=== PATIENT | female | born 1965 | race Caucasian/White ===

== ENCOUNTER 2016-12-19 15:06 | Emergency (ER) | payer OTHER ==
[2016-12-19 15:23] VITALS: TEMP 98.5
--- NOTE | 2016-12-19 15:43 | ED PDOC ---
Arrival/HPI - General Historian: Patient - History of Present Illness Time/Duration: Other (since yesterday morning) Context: Home - General Chief Complaint: High Blood Pressure Time Seen by Provider: 12/19/16 15:38 - History of Present Illness Narrative History of Present Illness (Text): 12/19/16 15:39 This 51 yo female with pmh htn, presents to this ED c/o feeling fatigue, mild MOON , and decreased appetite since yesterday morning. Patient stated she went to a local Urgent care center yesterday for evaluation. She was concerned her BP might have been elevated. However, she stated her blodd pressure was in 150's/ 70s. Patient stated symptoms perist today, so she came here to have BP recheck. Denies diplopia, dysarthria, dysphagia, syncope, n/v, rash, sick contact, recent travel, cp, sob, abdominal pain, urinary track symptoms, dizziness, or abnormal gait. (Seymour Beard) Past Medical History - Provider Review Nursing Documentation Reviewed: Yes - Cardiac Hx Hypertension: Yes - Pulmonary Hx Respiratory Disorders: No - Neurological Hx Neurological Disorder: No - HEENT Hx HEENT Disorder: No - Renal Hx Renal Disorder: No - Endocrine/Metabolic Hx Endocrine Disorders: No - Hematological/Oncological Hx Blood Disorders: No - Integumentary Hx Dermatological Disorder: No - Musculoskeletal/Rheumatological Hx Musculoskeletal Disorders: No - Gastrointestinal Hx Gastrointestinal Disorders: No - Genitourinary/Gynecological Hx Genitourinary Disorders: No - Psychiatric Hx Psychophysiologic Disorder: No Hx Substance Use: No - Surgical History Hx Hysterectomy: Yes Family/Social History - Physician Review Nursing Documentation Reviewed: Yes Family/Social History: No Known Family HX Smoking Status: Never Smoked Hx Alcohol Use: Yes Frequency of alcohol use: Socially Hx Substance Use: No Allergies/Home Meds Allergies/Adverse Reactions: Allergies No Known Allergies Allergy (Verified 12/19/16 15:18) Home Medications: Home Meds Medication Instructions Recorded Confirmed Losartan Potassium [Losartan 50 mg PO DAILY 12/19/16 12/19/16 Potassium] Review of Systems - Review of Systems Constitutional: Fatigue. absent: Weight Change, Fevers, Night Sweats Eyes: Normal ENT: Normal Respiratory: Normal Cardiovascular: Normal Gastrointestinal: Normal Genitourinary Female: Frequency. absent: Dysuria, Hematuria, Vaginal Bleeding, Vaginal Discharge Musculoskeletal: Normal Skin: Normal Neurological: Headache. absent: Dizziness, Focal Weakness, Gait Changes, Speech Changes, Facial Droop, Disequilibrium, Seizure Endocrine: Normal Hemo/Lymphatic: Normal Psychiatric: Normal Physical Exam Temperature: Afebrile Blood Pressure: Normal Pulse: Regular Respiratory Rate: Normal Appearance: Positive for: Well-Appearing, Non-Toxic, Comfortable Pain Distress: None Mental Status: Positive for: Alert and Oriented X 3 - Systems Exam Head: Present: Atraumatic, Normocephalic Pupils: Present: PERRL Extroacular Muscles: Present: EOMI Conjunctiva: Present: Normal Mouth: Present: Moist Mucous Membranes Neck: Present: Normal Range of Motion Respiratory/Chest: Present: Clear to Auscultation, Good Air Exchange. No: Respiratory Distress, Accessory Muscle Use, Wheezes, Retracting, Rhonchi Cardiovascular: Present: Regular Rate and Rhythm, Normal S1, S2. No: Murmurs Abdomen: Present: Normal Bowel Sounds. No: Tenderness, Distention, Peritoneal Signs, Rebound, Guarding Back: Present: Normal Inspection. No: CVA Tenderness Upper Extremity: Present: Normal Inspection, Normal ROM, NORMAL PULSES, Neurovascularly Intact, Capillary Refill < 2s. No: Cyanosis, Edema Lower Extremity: Present: Normal Inspection, NORMAL PULSES, Normal ROM, Deformity, Neurovascularly Intact. No: Edema, CALF TENDERNESS Neurological: Present: GCS=15, CN II-XII Intact, Speech Normal, Motor Func Grossly Intact, Normal Sensory Function, Normal Cerebellar Funct, Gait Normal, Memory Normal Skin: Present: Warm, Dry, Normal Color. No: Rashes Psychiatric: Present: Alert, Oriented x 3 Vital Signs Temp Pulse Resp BP Pulse Ox 12/19/16 15:18 98.5 F 107 H 16 135/89 95 Medical Decision Making Re-evaluation Time: 17:23 Reassessment Condition: Re-examined, Improved - Lab Interpretations I have reviewed the lab results: Yes Interpretation: No clinic. lab abnormalty (mild hypokalemia, possible cystitis) ED Course and Treatment: I was available for consultation during PA evaluation. The chart was reviewed by me, and I agree with disposition. The documented history was done by the physician special skills officer. The documented physical exam was done by the physician special skills officer. The documented procedures were done by the physician special skills officer. ( Remington Shoemaker) 12/19/16 17:23 Re-evaluation. Patient feels better. Discussed results and plan with patient who expresses understanding. All questions answered and there is agreement with the plan to discharge home with instructions. Patient stable for discharge. Return if symptoms persist or worsen. MOON has improved. No neuro focal deficits. Patient has a normal gait. (Seymour Beard) - Lab Interpretations Lab Results: 12/19/16 16:30 12/19/16 16:30 Lab Results 12/19/16 16:30: Sodium 140, Potassium 3.3 L, Chloride 105, Carbon Dioxide 23, Anion Gap 15, BUN 14, Creatinine 0.7, Est GFR ( Amer) > 60, Est GFR (Non- Af Amer) > 60, Random Glucose 102, Calcium 9.8, Total Bilirubin 1.1, AST 43 H, ALT 40, Alkaline Phosphatase 70, Total Protein 7.7, Albumin 4.0, Globulin 3.7, Albumin/Globulin Ratio 1.1 12/19/16 16:30: WBC 7.5, RBC 4.61, Hgb 14.8, Hct 43.2, MCV 93.7, MCH 32.1, MCHC 34.3, RDW 13.8, Plt Count 228, MPV 10.4, Gran % 68.0, Lymph % (Auto) 19.6 L, [place] % (Auto) 11.4 H, Eos % (Auto) 0.7 L, Baso % (Auto) 0.3, Gran # 5.08, Lymph # 1.5, [place] # 0.9 H, Eos # 0.1, Baso # 0.02 12/19/16 14:37: Urine Color Yellow, Urine Appearance Clear, Urine pH 5.5, Ur Specific Eva >= 1.030, Urine Protein Trace H, Urine Glucose (UA) Negative, Urine Ketones >=80, Urine Blood Large H, Urine Nitrate Negative, Urine Bilirubin Negative, Urine Urobilinogen 1.0 H, Ur Leukocyte Esterase Negative, Urine RBC 10 - 15, Urine WBC 2 - 5, Ur Epithelial Cells 6 - 8, Urine Bacteria Many, Urine HCG, Qual Negative - Medication Orders Current Medication Orders: Discontinued Medications Diphenhydramine HCl (Benadryl) 50 mg IVP STAT STA Stop: 12/19/16 15:47 Last Admin: 12/19/16 16:29 Dose: 50 mg Sodium Chloride (Sodium Chloride 0.9%) 1,000 mls @ 999 mls/hr IV .Q1H1M STA Stop: 12/19/16 16:45 Last Admin: 12/19/16 16:15 Dose: 999 mls/hr Metoclopramide HCl (Reglan) 10 mg IVP STAT STA Stop: 12/19/16 15:47 Last Admin: 12/19/16 16:30 Dose: 10 mg Nitrofurantoin Macrocrystals (Macrobid) 100 mg PO STAT STA Stop: 12/19/16 17:20 Potassium Chloride (Potassium Chloride Oral Soln) 40 meq PO STAT STA Stop: 12/19/16 17:20 Disposition/Present on Arrival - Present on Arrival Any Indicators Present on Arrival: No History of DVT/PE: No History of Uncontrolled Diabetes: No Urinary Catheter: No History of Decub. Ulcer: No History Surgical Site Infection Following: None - Disposition Have Diagnosis and Disposition been Completed?: Yes Disposition Time: 17:25 Patient Plan: Discharge - Disposition Diagnosis: Headache, Cystitis Disposition: HOME/ ROUTINE Condition: GOOD Discharge Instructions (ExitCare): Urinary Tract Infection in Women (ED), General Headache (ED) Additional Instructions: Call private doctor for follow up visit in 1-2 days. Take medication as instructed. Return to emergency if symptoms worsen. Eat a well balance diet with tomato, banana and vegetables Prescriptions: Nitrofurantoin Macrocrystals [Macrobid] 100 mg PO BID #14 cap Referrals: Belem Glass MD [Primary Care Provider] - Follow up with primary Forms: WORK NOTE
[2016-12-19] MEDS ORDERED: Sodium Chloride 0.9% 1,000 ML IV STA (15:45)
[2016-12-19] MEDS ORDERED: DiphenhydrAMINE 50 mg/ml Inj IVP STA (15:46)
[2016-12-19 16:46] LABS: ADD MANUAL DIFF? NO
[2016-12-19 16:48] LABS: PH,URINE 5.5 (4.7-8.0); URINE BILIRUBIN NEGATIVE (NEGATIVE); URINE BLOOD LARGE (NEGATIVE); URINE GLUCOSE (UA) NEGATIVE (NEGATIVE); URINE KETONE >=80 mg/dL (NEGATIVE); URINE LEUKOCYTE ESTERASE NEGATIVE Leu/uL (NEGATIVE); URINE PROTEIN TRACE mg/dL (<30 mg/dL)
[2016-12-19 16:58] LABS: BASO # 0.02 K/mm3 (0.0-2.0); BASO % 0.3 % (0.0-3.0); EOS # 0.1 (0.0-0.7); EOS % 0.7 % (1.5-5.0); GRAN # 5.08 (1.4-6.5); HEMATOCRIT 43.2 % (36.0-48.0); LYMPH # 1.5 (1.2-3.4); LYMPH % 19.6 % (22.0-35.0); MEAN CELL VOLUME 93.7 fL (80.0-105.0); MEAN CORPUSCULAR HEMOGLOBIN 32.1 pg (25.0-35.0); MEAN CORPUSCULAR HGB CONC 34.3 g/dl (31.0-37.0); MEAN PLATELET VOLUME 10.4 fl (7.0-11.0); MONO # 0.9 (0.1-0.6); MONO % 11.4 % (1.0-6.0); PLATELET COUNT 228 10^3/uL (120.0-450.0); RED CELL DISTRIBUTION WIDTH 13.8 % (11.5-14.5); WHITE BLOOD COUNT 7.5 10^3/ul (4.5-11.0)
[2016-12-19 17:00] LABS: URINE APPEARANCE CLEAR (CLEAR); URINE COLOR YELLOW (YELLOW)
[2016-12-19 17:04] LABS: ALB/GLOB RATIO 1.1 (1.1-1.8); ALKALINE PHOSPHATASE 70 U/L (38-133); ALT/SGPT 40 U/L (7-56); AST/SGOT 43 U/L (15-39); BILIRUBIN,TOTAL 1.1 mg/dL (0.2-1.3); BLOOD UREA NITROGEN 14 mg/dL (7-21); CALCIUM 9.8 mg/dL (8.4-10.5); CARBON DIOXIDE 23 mmol/L (21-33); CHLORIDE 105 mmol/L (98-107); GFR AFRICAN-AMERICAN > 60; GLUCOSE,RANDOM 102 mg/dL (70-110); POTASSIUM 3.3 mmol/L (3.6-5.0); SODIUM 140 mmol/L (132-148); TOTAL PROTEIN 7.7 g/dL (5.8-8.3)
[2016-12-19 17:05] LABS: URINE BACTERIA MANY (NEG)
[2016-12-19] MEDS ORDERED: Potassium Chloride 40 mEq/30 ml LIQ UD PO STA (17:19)
[2016-12-19 17:51] VITALS: BP 139/78; PULSE 72; RESP 18; O2SAT 99
== END 2016-12-19 17:50 | disposition home or self-care (01) ==
LOC: ED 15:06
DX: R51 Headache (principal); N30.90 Cystitis, unspecified without hematuria; I10 Essential (primary) hypertension
CPT/HCPCS: 80053; 81001; 84703; 85025; 87086; 96361; 96374; 96375; 99285; J1200; J2765; J3480; J7040